=== PATIENT | female | born 1935 | race Caucasian/White ===

== ENCOUNTER 2017-04-02 23:26 | Inpatient (IN) | payer OTHER ==
[~2017-04-02] VITALS: Ht 162.6 cm; Wt 95.7 kg
--- NOTE | ~2017-04-02 | HC ---
[facility] [place] [address] CONSULTATION Name: ADENIKE FERRO Jc Room #: 424-P [facility]..#: [id number] Admission: 04/03/17 Attend Phys: Jona Kimball MD Discharge: 04/07/17 Date of : 39 Report #: [id number] THIS REPORT FOR: //name// CC: Faizan Kimball DATE OF SERVICE: 04/03/2017 HISTORY OF PRESENT ILLNESS: I have been asked to evaluate this 81-year-old lady who was transferred from [facility] last evening after she presented with a gangrenous pale, dark left great toe. The patient reported accidently cutting her toe approximately 10 days ago on a [place]. She used a cortisone cream and covered with bandage. She did not seek any help from her provider until the told began to really turn quite dark, painful with worsening cyanosis in the last 24 hours. She presented to [facility] and was subsequently transferred to [facility]. PAST MEDICAL HISTORY: Is consistent with hysterectomy at 31 years of age, left total knee replacement, diabetes, carotid artery endarterectomy, has had cervical cancer, AFib by history, CVA, appendectomy. CURRENT MEDICATIONS: Were listed as Glyburide, enteric aspirin, Coumadin on a daily basis, Lyrica, glipizide, Prilosec, simvastatin, diltiazem, Lexapro, Requip, hydrochlorothiazide, Singulair, hydrocodone, Tylenol, Onglyza, gabapentin. ALLERGIES: No known drug allergies. SOCIAL HISTORY: She denies cigarette smoking and denies use of alcohol. FAMILY HISTORY: Is not obtained from the patient. REVIEW OF SYSTEMS: A 10-point review of systems essentially noncontributory except for recent change in the erythema of the foot as well as the swelling and gangrenous appearance of the left great toe to the metatarsophalangeal junction. She is a known diabetic for some time. PHYSICAL EXAMINATION: GENERAL: Reveals a well-developed, well-nourished lady in no acute distress, resting comfortably in bed. She is afebrile. HEENT: Pupils equal, round, reactive to light. No scleral icterus. CARDIOVASCULAR: Regular rate and rhythm. LUNGS: Clear to bases bilaterally. ABDOMEN: Obese. EXTREMITIES: There is erythema of the dorsum of the left foot to the ankle level. There is marked cyanosis with dark purplish black discoloration of the [facility] [address] [place] [address] CONSULTATION Name: ADENIKE FERRO Room #: 424-P [facility]#: [id number] Admission: 04/03/17 Attend Phys: Jona Kimball MD Discharge: 04/07/17 Date of : 39 Report #: [id number] left great toe to the metatarsophalangeal junction. There is a 1.5-2 cm area of laceration wound on the medial aspect of the left great toe. DIAGNOSTIC IMPRESSION: Gangrenous necrotic left great toe probably secondary to diabetes mellitus and atherosclerotic vascular disease. I would recommend consultation with podiatry and Vascular Surgery, would consider Interventional Radiology for angiography of the left femoral vessels than the level of the trifurcation at the popliteal region. Thank you for allowing us to participate in her care. <ELECTRONICALLY SIGNED> By: Howie Lopez MD, FACS 04/09/17 0900 [id number] Howie Lopez MD, FACS /nt
[~2017-04-02 23:26] MED LIST: ADULT LOW DOSE81 MG PO; ALLEGRA180 MG PO; ASPIRIN EC81 M1 PO; BACTRIM DS TAB1 EACH PO; COUMADIN 5 MG TA5 M1 PO; DIABETA PO; DILTIAZEM 24HR240 MG PO; DOXYCYCLINE 10100 M1 PO; GABAPENTIN100 MG PO; GLIPIZIDE ER10 MG PO; HYDROCHLOROTHIA25 M1 PO; HYDROCODON-ACE1 EAC7 PO; LEXAPRO 10 MG T10 MG PO; LEXAPRO20 MG PO; LIPITOR40 MG PO; LYRICA 50 MG50 MG PO; NORCO 5-325 TA1 EACH PO; OMEPRAZOLE20 MG PO; ONGLYZA5 MG PO; PRILOSEC40 MG PO; REQUIP 1 MG TABL1 M1 PO; SINGULAIR 10 MG10 M1 PO; SYMBICORT160 MCG/4. INH; UNSURE OF MEDS; VALACYCLOVIR1000 MG PO; VITAMIN B-12500 MCG PO; VYTORIN 10-401 EACH PO
[2017-04-03 04:00] VITALS: BP 137/62
[2017-04-03] MEDS ORDERED: ASA5UEC PO (04:56)
[2017-04-03 07:22] VITALS: BP 149/70
[2017-04-03 07:35] LABS: HEMATOCRIT 36.4 % (37.0-47.0); HEMOGLOBIN 12.2 gm/dL (12.0-15.0); MCH 28.6 pg (26.0-34.0); MCHC 33.7 g/dL (28.0-37.0); RBC 4.28 mil/uL (4.20-5.00); RDW 14.1 % (10.5-14.5); WBC 10.6 thou/uL (4.0-11.0)
[2017-04-03 07:49] LABS: APTT 28.7 Seconds (24.5-32.8); INR 1.1; PROTIME 11.9 Seconds (9.3-11.4)
[2017-04-03 07:53] LABS: ALBUMIN 2.9 g/dL (3.4-5.0); ALKALINE PHOSPHATASE 66 U/L (46-116); ANION GAP 7 mmol/L (7-16); BUN 17 mg/dL (7-18); CALCIUM 8.4 mg/dL (8.5-10.1); CHLORIDE 104 mmol/L (98-107); CO2 27 mmol/L (21-32); CREATININE 0.9 mg/dL (0.6-1.0); GLUCOSE 167 mg/dL (74-106); POTASSIUM 3.9 mmol/L (3.5-5.1); SGOT 20 U/L (15-37); SGPT 18 U/L (30-65); SODIUM 138 mmol/L (136-145); TOTAL BILIRUBIN 0.9 mg/dL (<0.1-1.0); TOTAL PROTEIN 6.8 g/dL (6.4-8.2); TROPONIN-I < 0.04 ng/mL (<0.04-0.07)
[2017-04-03] MEDS ORDERED: FENOFIBRATE160 MG PO (08:20)
[2017-04-03] MEDS ORDERED: ELIQUIS5 MG PO (08:21)
[2017-04-03] MEDS ORDERED: ATORVASTATIN CA40 MG PO (08:21)
[2017-04-03 15:41] VITALS: BP 122/51
[2017-04-03 20:00] VITALS: BP 83/47
[2017-04-04] VITALS (15 sets, daily range): BP systolic 95–191; BP diastolic 61–105
[2017-04-04 00:47] LABS: HEMATOCRIT 35.4 % (37.0-47.0); HEMOGLOBIN 11.9 gm/dL (12.0-15.0); MCH 28.4 pg (26.0-34.0); MCHC 33.6 g/dL (28.0-37.0); MCV 84.5 fL (80.0-100.0); RBC 4.19 mil/uL (4.20-5.00); WBC 7.7 thou/uL (4.0-11.0)
[2017-04-04 00:51] LABS: CREATININE 0.9 mg/dL (0.6-1.0); POTASSIUM 3.7 mmol/L (3.5-5.1)
[2017-04-05 04:48] VITALS: BP 110/48
[2017-04-05 09:55] VITALS: BP 140/59
[2017-04-05 10:59] LABS: ABSOLUTE NEUTROPHILS 7.6 thou/uL (1.4-8.2); BASOPHILS 0.7 % (0.0-2.0); EOSINOPHILS 0.9 % (0.0-3.0); HEMATOCRIT 36.3 % (37.0-47.0); LYMPHOCYTES 10.6 % (24.0-44.0); MCH 28.3 pg (26.0-34.0); MCHC 33.1 g/dL (28.0-37.0); MCV 85.5 fL (80.0-100.0); MONOCYTES 7.7 % (1.0-8.0); PLATELET COUNT 154 thou/uL (150-400); POLYS 80.1 % (36.0-66.0); RBC 4.25 mil/uL (4.20-5.00); RDW 14.1 % (10.5-14.5); WBC 9.4 thou/uL (4.0-11.0)
[2017-04-05 11:05] LABS: CALCIUM 8.3 mg/dL (8.5-10.1); CREATININE 0.9 mg/dL (0.6-1.0); POTASSIUM 3.9 mmol/L (3.5-5.1)
[2017-04-05 11:12] LABS: MANUAL DIFF NO
[2017-04-05 15:37] VITALS: BP 123/74
[2017-04-05 20:00] VITALS: BP 96/52
[2017-04-06 04:57] VITALS: BP 106/59
[2017-04-06 07:22] VITALS: BP 138/666
[2017-04-06 15:41] VITALS: BP 105/44
[2017-04-06 20:00] VITALS: BP 101/65
[2017-04-07 03:00] VITALS: BP 112/50
[2017-04-07 06:34] LABS: HEMATOCRIT 31.9 % (37.0-47.0); HEMOGLOBIN 10.9 gm/dL (12.0-15.0); MCH 28.8 pg (26.0-34.0); MCHC 34.1 g/dL (28.0-37.0); MCV 84.5 fL (80.0-100.0); RBC 3.78 mil/uL (4.20-5.00); WBC 8.7 thou/uL (4.0-11.0)
[2017-04-07 06:42] LABS: CALCIUM 8.2 mg/dL (8.5-10.1); CREATININE 0.7 mg/dL (0.6-1.0); POTASSIUM 3.8 mmol/L (3.5-5.1)
[2017-04-07 07:31] VITALS: BP 141/71
[2017-04-07] MEDS ORDERED: KEFLEX500 MG PO (12:04)
[2017-04-07] MEDS ORDERED: ASPIRIN EC325 M1 PO (12:04)
[2017-04-07 12:29] VITALS: BP 141/73
[2017-04-07 15:10] VITALS: BP 101/52
[2017-04-07 16:47] VITALS: BP 141/73
[2017-04-07 20:00] VITALS: BP 119/56
== END 2017-04-07 19:30 | disposition home health service (06) | DRG 300 ==
LOC: 3N 23:26 → 4E 04-05 14:36
PROVIDERS: Hospitalist; Nurse Practitioner Family
PROC: B41D1ZZ Fluoroscopy of Aorta and Bilateral Lower Extremity Arteries using Low Osmolar Contrast (ICD-10-PCS; 2017-04-04)
PROC: 02HV33Z Insertion of Infusion Device into Superior Vena Cava, Percutaneous Approach (ICD-10-PCS; principal; 2017-04-05)
PROC: B548ZZA Ultrasonography of Superior Vena Cava, Guidance (ICD-10-PCS; principal; 2017-04-05)
DX: E11.52 Type 2 diabetes mellitus with diabetic peripheral angiopathy with gangrene (principal); I70.262 Atherosclerosis of native arteries of extremities with gangrene, left leg; Z96.652 Presence of left artificial knee joint; I48.91 Unspecified atrial fibrillation; E11.621 Type 2 diabetes mellitus with foot ulcer; L97.529 Non-pressure chronic ulcer of other part of left foot with unspecified severity; I10 Essential (primary) hypertension; L03.032 Cellulitis of left toe; Z86.73 Personal history of transient ischemic attack (TIA), and cerebral infarction without residual deficits; Z85.41 Personal history of malignant neoplasm of cervix uteri; Z90.710 Acquired absence of both cervix and uterus; Z90.49 Acquired absence of other specified parts of digestive tract
CPT/HCPCS: 10096; 10183; 27000